=== PATIENT | female | born 1945 | race Caucasian/White ===

== ENCOUNTER 2017-07-31 11:35 | Emergency (ER) | payer MEDICARE, BC ==
[2017-07-31 12:56] LABS: Hematocrit 39 % (35-47); Hemoglobin 13.5 g/dl (12.0-16.0); Mean Corpuscular HGB Conc 35 g/dl (31-36); Mean Corpuscular Hemoglobin 32 pg (27-31); Mean Corpuscular Volume 93 fL (80-97); Mean Platelet Volume 8 um3 (7.4-10.4); Red Blood Count 4.21 10^6/ul (4.0-5.4); Red Cell Distribution Width 13 % (10.5-15); White Blood Count 8.6 10^3/ul (3.5-10.8)
[2017-07-31 13:14] LABS: Albumin 3.9 g/dL (3.2-5.2); BUN/Creatinine Ratio 16.1 (8-20); C Reactive Protein 3.74 mg/L (< 5.00); Calcium 9.5 mg/dL (8.6-10.3); EGFR African American 54.8 (>60); EGFR Non-African American 42.6 (>60); Globulin 2.4 g/dL (2-4); Potassium 3.6 mmol/L (3.5-5.0); Total Bilirubin 0.5 mg/dL (0.2-1.0); Total Protein 6.3 g/dL (6.4-8.9)
[2017-07-31 13:46] LABS: Urine Bilirubin Negative (Negative); Urine Glucose Negative (Negative); Urine Nitrite Negative (Negative)
--- NOTE | 2017-07-31 14:07 | RAD ---
INDICATION: Cough, shortness of breath, pain. COMPARISON: January 29, 2016 TECHNIQUE: Dual energy PA and routine lateral views of the chest were obtained. REPORT: Bibasilar airspace consolidation. Negative for pleural effusion or pneumothorax. The heart, pulmonary vasculature, and mediastinal contours are unremarkable. IMPRESSION: Bibasilar airspace consolidation new compared with the prior exam suspicious for pneumonia.
[2017-07-31] MEDS ORDERED: Levofloxacin 750 MG IVPREMIX(* 750 MG/150 ML BAG IVPB ONE (14:10)
[2017-07-31] MEDS ORDERED: Albuterol HFA INHALER* 8 gm MDI INH ONE (16:29)
[2017-07-31 16:53] VITALS: BP 126/62
--- NOTE | 2017-07-31 17:36 | ED ---
Kellie Engle SooYoung, scribed for Chon Ngo MD on 07/31/17 at 1217 . Shortness of Breath - HPI Summary HPI Summary: A 72 y/o F referred from her PCP for CXR presents to ED with c/o SOB onset last night. Associated sx: cough, subjective fever, post-nasal drip. She saw her PCP approx 10 days ago, dx: sinusitis. Given Levaquin. Pt's daughter has PNA and recently visited with pt. - History of Current Complaint Chief Complaint: EDShortnessOfBreath Time Seen by Provider: 07/31/17 12:01 Hx Obtained From: Patient, Medical Records Onset/Duration: Lasting Hours - onset last night, Still Present Timing: Constant Current Severity: Mild Associated Signs & Symptoms: Fever Related History: Obesity - Allergy/Home Medications Allergies/Adverse Reactions: Allergies Allergy/AdvReac Type Severity Reaction Status Date / Time Amlodipine [From Norvasc] Allergy Intermediate Rash Verified 07/31/17 11:47 Clarithromycin [From Biaxin] Allergy Intermediate Vomiting Verified 07/31/17 11: 47 Ranitidine Allergy Intermediate Hives Verified 07/31/17 11:47 Tetracycline Allergy Intermediate Vomiting Verified 07/31/17 11:47 Amoxicillin Allergy Nausea And Verified 07/31/17 11:47 Vomiting Oxycodone Allergy Dizziness Verified 07/31/17 11:47 ENVIRONMENTAL Allergy Intermediate Sneezing Uncoded 07/31/17 11:47 PMH/Surg Hx/FS Hx/Imm Hx Previously Healthy: No Endocrine/Hematology History: Reports: Hx Diabetes Cardiovascular History: Reports: Hx Hypertension Denies: Hx Pacemaker/ICD GI History: Reports: Hx Gastroesophageal Reflux Disease Sensory History: Denies: Hx Hearing Aid Psychiatric History: Reports: Hx Anxiety, Hx Depression Denies: Hx Panic Disorder - Cancer History Hx Chemotherapy: No Hx Radiation Therapy: No - Surgical History Surgery Procedure, Year, and Place: HAND,GALLBLADDER,HYSTERECTOMY,KIDNEY REMOVED ,NOSE,APPY,HERNIA X 2 - Immunization History Date of Influenza Vaccine: allergic Infectious Disease History: No Infectious Disease History: Denies: Traveled Outside the [place] in Last 30 Days - Family History Known Family History: Positive: Other - Breast CA - Social History Occupation: Retired Lives: Alone Hx Substance Use: No Substance Use Type: Reports: None Review of Systems Positive: Fever Positive: Other - post nasal drip Positive: Shortness Of Breath, Cough All Other Systems Reviewed And Are Negative: Yes Physical Exam - Summary Physical Exam Summary: VITAL SIGNS: Reviewed. GENERAL: Patient is a well-developed and nourished FEMALE who is lying comfortable in the stretcher. Patient is not in any acute respiratory distress. HEAD AND FACE: No signs of trauma. No ecchymosis, hematomas or skull depressions. No sinus tenderness. EYES: PERRLA, EOMI x 2, No injected conjunctiva, no nystagmus. EARS: Hearing grossly intact. Ear canals and tympanic membranes are within normal limits. MOUTH: Oral mucosa is dry, otherwise oropharynx within normal limits. NECK: Supple, trachea is midline, no adenopathy, no JVD, no carotid bruit, no c- spine tenderness, neck with full ROM. CHEST: Symmetric, no tenderness at palpation LUNGS: Crackles in both lung bases. CVS: Regular rate and rhythm, S1 and S2 present. Ejection systolic murmur 2/6. ABDOMEN: Soft, non-tender. No signs of distention. No rebound, no guarding, and no masses palpated. Bowel sounds are normal. EXTREMITIES: FROM in all major joints, no edema, no cyanosis or clubbing. NEURO: Alert and oriented x 3. No acute neurological deficits. Speech is normal and follows commands. SKIN: Dry and warm Triage Information Reviewed: Yes Vital Signs On Initial Exam: Initial Vitals Temp Pulse Resp BP Pulse Ox 99.5 F 84 18 125/60 94 07/31/17 11:42 07/31/17 11:42 07/31/17 11:42 07/31/17 11:42 07/31/17 11:42 Vital Signs Reviewed: Yes Diagnostics - Vital Signs Vital Signs Temp Pulse Resp BP Pulse Ox 07/31/17 11:42 99.5 F 84 18 125/60 94 - Laboratory Lab Results: Lab Results 07/31/17 07/31/17 07/31/17 Range/Units 12:40 12:40 12:40 WBC 8.6 (3.5-10.8) 10^3/ul RBC 4.21 (4.0-5.4) 10^6/ul Hgb 13.5 (12.0-16.0) g/dl Hct 39 (35-47) % MCV 93 (80-97) fL MCH 32 H (27-31) pg MCHC 35 (31-36) g/dl RDW 13 (10.5-15) % Plt Count 153 (150-450) 10^3/ul MPV 8 (7.4-10.4) um3 Neut % (Auto) 67.8 (38-83) % Lymph % (Auto) 21.8 L (25-47) % [place] % (Auto) 6.5 (1-9) % Eos % (Auto) 3.3 (0-6) % Baso % (Auto) 0.6 (0-2) % Absolute Neuts (auto) 5.8 (1.5-7.7) 10^3/ul Absolute Lymphs (auto) 1.9 (1.0-4.8) 10^3/ul Absolute Monos (auto) 0.6 (0-0.8) 10^3/ul Absolute Eos (auto) 0.3 (0-0.6) 10^3/ul Absolute Basos (auto) 0.1 (0-0.2) 10^3/ul Absolute Nucleated RBC 0 10^3/ul Nucleated RBC % 0 Sodium 138 (133-145) mmol/L Potassium 3.6 (3.5-5.0) mmol/L Chloride 107 (101-111) mmol/L Carbon Dioxide 23 (22-32) mmol/L Anion Gap 8 (2-11) mmol/L BUN 20 (6-24) mg/dL Creatinine 1.24 H (0.51-0.95) mg/dL Est GFR ( Amer) 54.8 (>60) Est GFR (Non-Af Amer) 42.6 (>60) BUN/Creatinine Ratio 16.1 (8-20) Glucose 115 H (70-100) mg/dL Calcium 9.5 (8.6-10.3) mg/dL Total Bilirubin 0.50 (0.2-1.0) mg/dL AST 11 L (13-39) U/L ALT 8 (7-52) U/L Alkaline Phosphatase 56 (34-104) U/L C-Reactive Protein 3.74 (< 5.00) mg/L B-Natriuretic Peptide 32 ( - 100) pg/mL Total Protein 6.3 L (6.4-8.9) g/dL Albumin 3.9 (3.2-5.2) g/dL Globulin 2.4 (2-4) g/dL Albumin/Globulin Ratio 1.6 (1-3) Urine Color Urine Appearance Urine pH (5-9) Ur Specific [place] (1.010-1.030) Urine Protein (Negative) Urine Ketones (Negative) Urine Blood (Negative) Urine Nitrate (Negative) Urine Bilirubin (Negative) Urine Urobilinogen (Negative) Ur Leukocyte Esterase (Negative) Urine Glucose (Negative) 07/31/17 Range/Units 13:37 WBC (3.5-10.8) 10^3/ul RBC (4.0-5.4) 10^6/ul Hgb (12.0-16.0) g/dl Hct (35-47) % MCV (80-97) fL MCH (27-31) pg MCHC (31-36) g/dl RDW (10.5-15) % Plt Count (150-450) 10^3/ul MPV (7.4-10.4) um3 Neut % (Auto) (38-83) % Lymph % (Auto) (25-47) % [place] % (Auto) (1-9) % Eos % (Auto) (0-6) % Baso % (Auto) (0-2) % Absolute Neuts (auto) (1.5-7.7) 10^3/ul Absolute Lymphs (auto) (1.0-4.8) 10^3/ul Absolute Monos (auto) (0-0.8) 10^3/ul Absolute Eos (auto) (0-0.6) 10^3/ul Absolute Basos (auto) (0-0.2) 10^3/ul Absolute Nucleated RBC 10^3/ul Nucleated RBC % Sodium (133-145) mmol/L Potassium (3.5-5.0) mmol/L Chloride (101-111) mmol/L Carbon Dioxide (22-32) mmol/L Anion Gap (2-11) mmol/L BUN (6-24) mg/dL Creatinine (0.51-0.95) mg/dL Est GFR ( Amer) (>60) Est GFR (Non-Af Amer) (>60) BUN/Creatinine Ratio (8-20) Glucose (70-100) mg/dL Calcium (8.6-10.3) mg/dL Total Bilirubin (0.2-1.0) mg/dL AST (13-39) U/L ALT (7-52) U/L Alkaline Phosphatase (34-104) U/L C-Reactive Protein (< 5.00) mg/L B-Natriuretic Peptide ( - 100) pg/mL Total Protein (6.4-8.9) g/dL Albumin (3.2-5.2) g/dL Globulin (2-4) g/dL Albumin/Globulin Ratio (1-3) Urine Color Yellow Urine Appearance Clear Urine pH 7.0 (5-9) Ur Specific [place] 1.009 L (1.010-1.030) Urine Protein Negative (Negative) Urine Ketones Negative (Negative) Urine Blood Negative (Negative) Urine Nitrate Negative (Negative) Urine Bilirubin Negative (Negative) Urine Urobilinogen Negative (Negative) Ur Leukocyte Esterase Negative (Negative) Urine Glucose Negative (Negative) Result Diagrams: 07/31/17 12:40 07/31/17 12:40 Lab Statement: Any lab studies that have been ordered have been reviewed, and results considered in the medical decision making process. - Radiology CXR Xray Interpretation: Positive (See Comments) - IMPRESSION: Bibasilar airspace consolidation new compared with the prior exam suspicious for pneumonia. ED physician has reviewed this radiology report and agrees. Radiology Interpretation Completed By: Radiologist - EKG 1217 Cardiac Rate: NL - 81bpm EKG Rhythm: Sinus Rhythm ST Segment: Normal - no ST elevation EKG Interpretation: low voltage EKG Re-Evaluation - Re-Evaluation 1 Re-Evaluation Time: 14:10 Change: Unchanged Comment: Discussing results with pt. Course/Dx - Course Course Of Treatment: A 72 y/o F referred from her PCP for CXR presents to ED with c/o SOB onset last night. Associated sx: cough, subjective fever, post- nasal drip. She saw her PCP approx 10 days ago, dx: sinusitis. Given Levaquin. Pt's daughter has PNA and recently visited with pt. Test results are without significant abnormality except creatinine 1.24, possibly secondary to dehydration. UA results are negative for UTI. CXR shows "IMPRESSION: Bibasilar airspace consolidation new compared with the prior exam suspicious for pneumonia." In ED course, pt given Levaquin for the PNA. [id number] is less than 1, therefore pt's PNA can be treated out-patient. Pt is hemodynamically stable and A&Ox3. I discussed all the findings and test results with the patient. Patient was instructed to return to the emergency room immediately if any of the symptoms return or worsens. Plan of care was discussed with the patient and understands and agrees. All questions were answered at patient satisfaction. There were no further complaints or concerns. - Diagnoses Differential Diagnosis/HQI/PQRI: Positive: Bronchitis, CHF, COPD Exacerbation, Pneumonia Provider Diagnoses: Pneumonia Discharge - Discharge Plan Condition: Stable Disposition: HOME Prescriptions: Levofloxacin TAB* [Levaquin TAB*] 750 mg PO DAILY #9 tab Patient Education Materials: Pneumonia (ED), Levofloxacin (By mouth) Referrals: Kimberlee Esteban MD [Primary Care Provider] - 2 Days Additional Instructions: Follow up with your Primary Care Provider in 2-3 days. Please return to ED if you experience new or worsening symptoms. The documentation as recorded by the Kellie woody SooYoung accurately reflects the service I personally performed and the decisions made by me, Chon Ngo MD.
== END 2017-07-31 17:14 | disposition home or self-care (01) ==
LOC: ED 11:35
DX: J18.9 Pneumonia, unspecified organism (principal); R50.9 Fever, unspecified; R06.02 Shortness of breath; R05 Cough
CPT/HCPCS: 36415; 71020; 80053; 81003; 83880; 85025; 86140; 93005; 99283; A9270-GY

== ENCOUNTER 2018-04-11 22:47 | Emergency (ER) | payer MEDICARE, BC ==
[2018-04-12] MEDS ORDERED: traMADol TAB* 50 MG PO ONE (02:42)
--- NOTE | 2018-04-12 02:45 | ED ---
Adult Trauma - HPI Summary HPI Summary: patient complains of headache, right side neck pain, right chest wall pain, right hip pain, lower back pain S/P witnessed mechanical fall from standing position today at 10:30. POS LOC for about 30 seconds per family. Denies any prior symptoms. Denies active N/V, vision change, AMS, focal deficits since fall. Patient is ambulated. Medical history is DM. No anti-coag. - History of Current Complaint Chief Complaint: EDGeneral Stated Complaint: FALL/HIT HEAD Time Seen by Provider: 04/12/18 00:43 Hx Obtained From: Patient Mechanism of Injury: Fall Loss of Consciousness: brief (seconds) Onset of Pain: Immediate Onset Severity: Moderate Current Severity: Moderate Pain Intensity: 8 Pain Scale Used: 0-10 Numeric Location: Head, Neck Character: Aching Aggravating Factor(s): Movement Alleviating Factor(s): Nothing Associated Signs & Symptoms: Positive: Negative - Allergy/Home Medications Allergies/Adverse Reactions: Allergies Allergy/AdvReac Type Severity Reaction Status Date / Time amlodipine Allergy Rash Verified 04/12/18 01:38 amoxicillin Allergy Nausea And Verified 04/12/18 01:38 Vomiting clarithromycin Allergy Vomiting Verified 04/12/18 01:38 oxycodone Allergy Dizziness Verified 04/12/18 01:38 ranitidine Allergy Hives Verified 04/12/18 01:38 tetracycline Allergy Vomiting Verified 04/12/18 01:38 ENVIRONMENTAL Allergy Intermediate Sneezing Uncoded 07/31/17 11:47 PMH/Surg Hx/FS Hx/Imm Hx Endocrine/Hematology History: Reports: Hx Diabetes Cardiovascular History: Reports: Hx Hypertension Denies: Hx Pacemaker/ICD GI History: Reports: Hx Gastroesophageal Reflux Disease Sensory History: Denies: Hx Hearing Aid Psychiatric History: Reports: Hx Anxiety, Hx Depression Denies: Hx Panic Disorder - Cancer History Hx Chemotherapy: No Hx Radiation Therapy: No - Surgical History Surgery Procedure, Year, and Place: HAND,GALLBLADDER,HYSTERECTOMY,KIDNEY REMOVED ,NOSE,APPY,HERNIA X 2 - Immunization History Date of Tetanus Vaccine: utd Date of Influenza Vaccine: unable to take Infectious Disease History: No Infectious Disease History: Denies: Traveled Outside the [place] in Last 30 Days - Family History Known Family History: Positive: Other - Breast CA - Social History Alcohol Use: None Hx Substance Use: No Substance Use Type: Reports: None Smoking Status (MU): Never Smoked Tobacco Review of Systems Constitutional: Negative Eyes: Negative ENT: Negative Cardiovascular: Negative Respiratory: Negative Gastrointestinal: Negative Genitourinary: Negative Musculoskeletal: Other Skin: Negative Positive: Headache Psychological: Normal All Other Systems Reviewed And Are Negative: Yes Physical Exam - Summary Physical Exam Summary: No ecchymosis, swelling, deformity, abrasions or lacerations to head, face, mouth, neck, back, bilateral upper extremities, bilateral lower extremities, bilateral hips, chest wall, abdomen. Tenderness to L-spine, right hip, right side chest wall, right side head, right side neck. Full range of motion of neck. Full flexion and extension of bilateral upper extremities and lower extremity. Limited range of motion of right hip. No external rotation or foot. Legs of equal length. PMS intact distally on bilateral lower extremity. Neuro exam normal. EOMs intact. PERRLA. Triage Information Reviewed: Yes Vital Signs On Initial Exam: Initial Vitals Temp Pulse Resp BP Pulse Ox 98.1 F 72 16 130/64 96 04/11/18 22:49 04/11/18 22:49 04/11/18 22:49 04/11/18 22:49 04/11/18 22:49 Vital Signs Reviewed: Yes Appearance: Positive: Well-Appearing Skin: Positive: Warm Head/Face: Positive: Normal Head/Face Inspection ENT: Positive: Normal ENT inspection Neck: Positive: Supple Respiratory/Lung Sounds: Positive: Clear to Auscultation Cardiovascular: Positive: Normal Abdomen Description: Positive: Nontender Musculoskeletal: Positive: Normal Neurological: Positive: Normal Psychiatric: Positive: Normal AVPU Assessment: Alert - [place] Coma Scale Best Eye Response: 4 - Spontaneous Best Motor Response: 6 - Obeys Commands Best Verbal Response: 5 - Oriented Coma Scale Total: 15 Diagnostics - Vital Signs Vital Signs Temp Pulse Resp BP Pulse Ox 04/12/18 02:20 73 21 114/54 93 04/12/18 02:00 70 23 95 04/12/18 01:50 72 24 127/62 97 04/12/18 01:35 21 04/12/18 00:50 72 116/63 95 04/11/18 22:49 98.1 F 72 16 130/64 96 - Laboratory Lab Results: Lab Results 04/11/18 Range/Units 23:48 POC Glucose (mg/dL) 102 H (70-100) mg/dL Lab Statement: Any lab studies that have been ordered have been reviewed, and results considered in the medical decision making process. - Radiology cxr Xray Interpretation: No Acute Changes Radiology Interpretation Completed By: ED Physician hip Xray Interpretation: No Acute Changes Radiology Interpretation Completed By: ED Physician l spine Xray Interpretation: No Acute Changes Radiology Interpretation Completed By: ED Physician - CT brain CT Interpretation: No Acute Changes CT Interpretation Completed By: Radiologist neck CT Interpretation: No Acute Changes CT Interpretation Completed By: Radiologist Adult Trauma Course/Dx - Course Course Of Treatment: patient complains of headache, right side neck pain, right chest wall pain, right hip pain, lower back pain S/P witnessed mechanical fall from standing position today at 10:30. POS LOC for about 30 seconds per family. Denies any prior symptoms. Denies active N/V, vision change, AMS, focal deficits since fall. Patient is ambulated. Medical history is DM. No anti- coag. No ecchymosis, swelling, deformity, abrasions or lacerations to head, face, mouth, neck, back, bilateral upper extremities, bilateral lower extremities, bilateral hips, chest wall, abdomen. Tenderness to L-spine, right hip, right side chest wall, right side head, right side neck. Full range of motion of neck. Full flexion and extension of bilateral upper extremities and lower extremity. Limited range of motion of right hip. No external rotation or foot. Legs of equal length. PMS intact distally on bilateral lower extremity. Neuro exam normal. EOMs intact. PERRLA. Vital signs within normal limits. Imaging negative. Follow-up with primary care. - Diagnoses Provider Diagnoses: Fall, Head injury Discharge - Sign-Out/Discharge Documenting (check all that apply): Discharge/Admit/Transfer - Discharge Plan Condition: Stable Disposition: HOME Patient Education Materials: Concussion (ED), Post Concussion Syndrome (ED) Referrals: Ashanti Cox NP [Primary Care Provider] - Additional Instructions: Follow-up with primary care. Return to the ED for any new or worsening symptoms - Billing Disposition and Condition Condition: STABLE Disposition: Home
[2018-04-12 03:00] VITALS: BP 127/87
--- NOTE | 2018-04-12 07:38 | RAD ---
INDICATION: Fall. Intracranial injury. COMPARISON: CT brain November 29, 2004 TECHNIQUE: Noncontrast axial source images were acquired from the skull base to the vertex. FINDINGS: Ventricles/sulci: There is cortical atrophy with compensatory dilatation of the CSF spaces. Brain parenchyma: There is periventricular and subcortical white matter change compatible with chronic ischemia. Intracranial hemorrhage:None. Extra-axial spaces: There are no abnormal extra axial fluid collections or evidence of extra-axial mass. Calvarium: There is no calvarial fracture or other calvarial abnormality. Scalp: There is no evidence of scalp or extracalvarial soft tissue abnormality. Paranasal sinuses/mastoid: The paranasal sinuses and mastoid air cells are clear. Other: None. IMPRESSION: Age-related atrophy with chronic microvascular ischemic change. No acute findings.
--- NOTE | 2018-04-12 07:42 | RAD ---
INDICATION: Fall. Possible neck injury. COMPARISON: CT cervical spine July 11, 2010 TECHNIQUE: Noncontrast axial source images was performed from the skull base to the thoracic inlet. Coronal and and sagittal reformatted images were generated. FINDINGS: Vertebrae: There is no fracture or acute focal bony lesion. There is multilevel spondylitic change with disc space narrowing, endplate sclerosis and marginal osteophyte formation and facet arthropathy most prominent at C4-C7. There is also osteoarthritic change of the upper thoracic spine. There is intervertebral disc calcification at C2-C3 Alignment: The craniocervical junction appears normal. The cervical vertebrae are normally aligned. Central Canal: Posterior spondylitic ridge reformation and suppresses spurring leads to mild decrease in AP diameter canal multiple levels and there is mild bilateral foraminal narrowing. MR imaging is a more sensitive method to evaluate the canal and foramina. Intervertebral disc spaces: As above multilevel degenerative disc space narrowing. Brain: The visualized brain appears unremarkable. Soft tissues: The visualized soft tissue elements of the neck are unremarkable. The prevertebral soft tissues appear normal. The lung apices are clear. IMPRESSION: MODERATE MULTILEVEL OSTEOARTHRITIC CHANGES. NO ACUTE FINDINGS
--- NOTE | 2018-04-12 07:43 | RAD ---
INDICATION: Fall COMPARISON: September 05, 2017 TECHNIQUE: PA and lateral dual-energy views were obtained. FINDINGS: Bones/Soft Tissues: There are no acute bony findings. Cardiomediastinal: The cardiomediastinal silhouette is normal. Lungs: There are no infiltrates. Pleura: There are no pleural effusions. Other: None IMPRESSION: NO ACTIVE DISEASE.
--- NOTE | 2018-04-12 07:46 | RAD ---
INDICATION: Fall. Back pain COMPARISON: CT October 21, 2013 TECHNIQUE: Routine PA, lateral, and oblique imaging was performed . FINDINGS: Bones: There are no acute bony findings. There are arthritic changes most severe at L4-L5 where there is prominent facet arthropathy. There is disc space narrowing at the lower 3 lumbar levels with additional facet arthropathy.. Alignment: There are no changes in alignment. There is a minimal anterolisthesis of L4 and L5 which is likely on a degenerative basis and there is mild convexity of the lumbar spine to the right Disc spaces: Multilevel degenerative disc space narrowing Soft tissues: There is metallic artifact from ventral mesh placement. IMPRESSION: MODERATE MULTILEVEL OSTEOARTHRITIC CHANGES.
--- NOTE | 2018-04-12 07:46 | RAD ---
INDICATION: Fall. Right hip pain COMPARISON: None TECHNIQUE: An AP view of the pelvis and AP views of the hip in neutral and abducted position were obtained FINDINGS: Bones: There are no acute bony findings. Joint spaces: The hips articulate normally. The joint spaces are preserved. SI joints/symphysis: The SI joints and symphysis are intact. There is mild sclerosis about the symphysis pubis. Other: There is metallic artifact from ventral mesh placement. IMPRESSION: NO ACUTE BONY FINDINGS.
== END 2018-04-12 03:05 | disposition home or self-care (01) ==
LOC: ED 22:47
DX: S09.90XA Unspecified injury of head, initial encounter (principal); R07.89 Other chest pain; M54.2 Cervicalgia; M25.551 Pain in right hip; W19.XXXA Unspecified fall, initial encounter; Y92.9 Unspecified place or not applicable; E11.9 Type 2 diabetes mellitus without complications; Z88.8 Allergy status to other drugs, medicaments and biological substances; Z88.3 Allergy status to other anti-infective agents
CPT/HCPCS: 70450; 71046; 72100; 72125; 93005; 99283; A9270-GY

== ENCOUNTER 2019-11-29 09:46 | Day surgery (SDC) | payer MEDICARE, BC ==
[~2019-11-29 09:46] MED LIST: Buffered Lidocaine 1% SYRIN* 1 ML/SYRINGE INTRADERM ONE; Lactated Ringers 1000 ML Bag* 1,000 ML IV SCH
[2019-11-29] MEDS ORDERED: Bupivacaine 0.5% SDV PF* 30ML VIAL ONE (09:50)
[2019-11-29] MEDS ORDERED: Dexamethasone IV* 4 MG/ML 1 ML (4 MG) ONE ×2 (09:50→11:08)
[2019-11-29] MEDS ORDERED: Lidocaine 1% INJ* 10 MG/ML 30 ML SDV ONE (09:50)
[2019-11-29] MEDS ORDERED: Clindamycin 900 MG/D5W BAG(*) 900 MG/50 ML BAG IVPB ONE (09:52)
[2019-11-29] MEDS ORDERED: Midazolam* 1 MG/ML 2 ML VIAL (2 MG) ONE (09:58)
[2019-11-29] MEDS ORDERED: fentaNYL* 50 MCG/ML 2 ML VIAL (100 MCG VIAL) ONE (10:39)
[2019-11-29] MEDS ORDERED: DiMENhydriNATE IV* 50 MG/ML VIAL IV PUSH PRN (10:59)
[2019-11-29] MEDS ORDERED: Naloxone* 0.4 MG/ML 1 ML VIAL IV PRN (10:59)
[2019-11-29] MEDS ORDERED: fentaNYL* 50 MCG/ML 2 ML VIAL (100 MCG VIAL) IV PRN (10:59)
[2019-11-29] MEDS ORDERED: Ondansetron INJ* 2 MG/ML VIAL IV PRN (10:59)
[2019-11-29] MEDS ORDERED: diPHENhydraMINE IV* 50 MG/ML 1 ml VIAL (BENADRYL) IV PRN (10:59)
[2019-11-29] MEDS ORDERED: Levalbuterol 0.63MG/3ML NEB* UNIT OF USE INH PRN (10:59)
[2019-11-29] MEDS ORDERED: Lidocaine 2% PF * 5 ML VIAL ONE (11:08)
[2019-11-29] MEDS ORDERED: Propofol* 10 MG/ML 20 ML BTL ONE (11:08)
[2019-11-29] MEDS ORDERED: Ondansetron INJ* 2 MG/ML VIAL ONE (11:08)
[2019-11-29] MEDS ORDERED: Ketorolac INJ* 30 MG/ML 1 ML VIAL ONE (11:08)
[2019-11-29 13:23] VITALS: BP 126/80
--- NOTE | 2019-11-29 17:15 | OP ---
DATE OF OPERATION: 11/29/19 - [facility] DATE OF : 47 SURGEON: John Saini DPM REHABILITATION AIDE/SCHEDULER: None. ANESTHESIA: MAC with local. PRE-OP DIAGNOSES: 1. 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 2. Diabetic with chronic and painful third left hammertoe. POST-OP DIAGNOSES: 1. 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 2. Diabetic with chronic and painful third left hammertoe. 3. 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 OPERATIVE PROCEDURE: 1. Correction of second left hammertoe with proximal interphalangeal joint arthroplasty. 2. Correction of third left hammertoe with proximal interphalangeal joint arthroplasty. PATHOLOGY: Resected degenerative bone. HEMOSTASIS: Pneumatic ankle tourniquet. INDICATIONS: The patient with chronic and progressive contracture and stiffness involving the second and third left toes, second toe in particular, chronic and recurrent ulceration at the tip of the toe, which is not currently ulcerated nor infected. The third left toe has some morphological abnormalities of the PIPJ and stiffness with possible history of trauma. he patient opts for surgery at this time to reduce the deformity and the contracture contributing to the ulceration and the pain associated when walking , wearing shoes. DESCRIPTION OF PROCEDURE: The patient was brought to the operating room and placed on the operating table in supine position. The anesthesia department administered IV sedation and a peripheral nerve block was performed about the left forefoot with 1:1 mixture of 1% lidocaine plain and 0.5% Marcaine plain. The left foot was prepped and draped in the usual fashion. Left foot was then exsanguinated. Pneumatic ankle tourniquet was inflated to 250 mmHg about a well- padded left ankle. Attention was directed to the second left digit. Two transverse subsequent incisions were made over the PIPJ and wedge of the skin was resected. Dissection was carried down to the joint with care being taken to retract neurovascular structures and cauterize superficial bleeders as needed. Next, a transverse tenotomy capsulotomy was performed for exposure of the proximal phalangeal head, which was resected with sagittal saw and a power steph was used to smooth rough edges. The surgical site was flushed with copious amounts of normal sterile saline. The tendon and capsular tissues were reapproximated and secured with 4-0 Vicryl and the skin was closed with 5-0 nylon. Next, attention was directed to the third left digit where at the proximal interphalangeal joint, similar procedure was performed, resecting wedge of skin dorsally incising the joint. In this case, however, there was noted to be white chalk-like debris and tissue in abundance as well as some hypertrophy of the proximal phalangeal head in the base of the middle phalanx. A sagittal saw was used to resect the head of the proximal phalanx and a portion of the base of the middle phalanx, and a power steph was used to smooth and reduce rough and hypertrophic edges. The surgical site was flushed with copious amounts of normal sterile saline. In similar fashion, the tendinous and capsular structures were reapproximated and secured with 4-0 Vicryl and the skin was closed with 5-0 nylon. Next, the Mastisol was used to prep the skin and then Steri-Strips were used to splint the digits in a rectus position. The incisions were then dressed with Xeroform gauze and a sterile mildly compressive dressing was applied with 4x4 gauze, Don, and light Coban wrap. Pneumatic ankle tourniquet was deflated about the left ankle. After few moments , a hyperemic response was noted about all 5 digits of the patient's left foot. Having appeared to tolerate the procedures and anesthesia well, the patient was transported via cart from the operating room to Recovery in satisfactory condition with cap refill less than 3 seconds to all digits in the left foot. [id number]/[facility] #: [id number] JASON
== END 2019-11-29 12:35 | disposition home or self-care (01) ==
LOC: OREAST 09:46
PROVIDERS: ATTEND Podiatrist Foot Surgery
DX: M20.42 Other hammer toe(s) (acquired), left foot (principal); N18.3 Chronic kidney disease, stage 3 (moderate); I12.9 Hypertensive chronic kidney disease with stage 1 through stage 4 chronic kidney disease, or unspecified chronic kidney disease; I34.1 Nonrheumatic mitral (valve) prolapse; E11.9 Type 2 diabetes mellitus without complications; Z79.84 Long term (current) use of oral hypoglycemic drugs; M79.7 Fibromyalgia; F41.8 Other specified anxiety disorders; E55.9 Vitamin D deficiency, unspecified; Z68.41 Body mass index [BMI] 40.0-44.9, adult
CPT/HCPCS: 88304; 88311; J1100; J1885; J2250; J2405; J2704; J3010; J3490

== ENCOUNTER 2021-08-23 14:57 | Inpatient (IN) ==
[2021-08-23 16:05] LABS: ABS Basophils 0.1 10^3/ul (0-0.2); ABS Eosinophils 0.2 10^3/ul (0-0.6); ABS Lymphocytes 1.4 10^3/ul (1.0-4.8); ABS Monocytes 0.5 10^3/ul (0-0.8); ABS Neutrophils 4.3 10^3/ul (1.5-7.7); Eosinophil % 3.8 %; Hematocrit 43 % (35-47); Hemoglobin 14.6 g/dL (12.0-16.0); Lymphocyte % 21.3 %; Mean Corpuscular HGB Conc 34 g/dL (31-36); Mean Corpuscular Hemoglobin 34 pg (27-31); Mean Corpuscular Volume 99 fL (80-97); Mean Platelet Volume 9.6 fL (7.4-10.4); Platelet Count 140 10^3/uL (150-450); Red Blood Count 4.36 10^6 /uL (3.70-4.87); Red Cell Distribution Width 13 % (10-15); White Blood Count 6.5 10^3/uL (3.5-10.8)
[2021-08-23 16:13] LABS: INR 1.13 (0.86-1.15)
[2021-08-23 16:24] LABS: Urine Appearance Cloudy; Urine Bilirubin Negative (Negative); Urine Blood 1+ (Negative); Urine Color Yellow; Urine Glucose Negative (Negative); Urine Ketones Negative (Negative); Urine Nitrite Negative (Negative); Urine Protein Negative (Negative); Urine Specific Gravity 1.015 (1.002-1.030); Urine Urobilinogen Negative (Negative)
[2021-08-23 16:29] LABS: ALT 11 U/L (7-52); AST 17 U/L (13-39); Albumin 4.2 g/dL (3.2-5.2); Albumin/Globulin Ratio 1.8 (1-3); Alkaline Phosphatase 60 U/L (35-149); Anion Gap 6 mmol/L (2-11); Blood Urea Nitrogen 17 mg/dL (6-24); CO2 Carbon Dioxide 22 mmol/L (22-32); Calcium 9.4 mg/dL (8.6-10.3); Chloride 111 mmol/L (101-111); Globulin 2.3 g/dL (2-4); Glucose 138 mg/dL (70-100); Potassium 3.9 mmol/L (3.5-5.0); Sodium 139 mmol/L (135-145); Total Protein 6.5 g/dL (6.4-8.9); Troponin I 0.01 ng/mL (<0.03)
[2021-08-23 16:44] LABS: Alcohol, S < 13 mg/dL (<13)
[2021-08-23 16:47] LABS: Urine Benzodiazepine Screen None Detected (None Detect); Urine Cannabinoids Screen None Detected (None Detect); Urine Opiates Screen None Detected (None Detect)
[2021-08-23 16:48] LABS: Urine Bacteria Absent (Absent); Urine Red Blood Cell Trace(0-2/hpf) (Absent); Urine Squamous Epithelial Cell Present (Absent); Urine White Blood Cell Trace(0-5/hpf) (Absent)
[2021-08-23 16:59] LABS: TSH Ultra Thyroid Stim Horm 2.12 mcIU/mL (0.34-5.60)
[2021-08-24] MEDS ORDERED: Al Hydrox/Mg Hydrox/Simet LIQ 30 ML UDC PO PRN (11:41)
[2021-08-24 13:51] LABS: Rapid COVID-19 Molecular Undetected (Undetected)
[2021-08-26 07:54] LABS: HDL Cholesterol 36.7 mg/dL
[2021-08-28 09:37] VITALS: BP 137/54
== END 2021-08-28 13:30 | disposition home or self-care (01) | DRG 885 ==
LOC: ED 14:57 → EDHOLD 08-24 18:15 → BSU 08-24 19:12
PROVIDERS: ADMIT Psychiatry & Neurology Psychiatry; ATTEND Psychiatry & Neurology Psychiatry

== ENCOUNTER 2022-06-03 20:55 | Inpatient (IN) ==
[2022-06-04 00:55] LABS: ABS Basophils 0.1 10^3/ul (0-0.2); ABS Eosinophils 0.8 10^3/ul (0-0.6); ABS Lymphocytes 2.1 10^3/ul (1.0-4.8); ABS Monocytes 0.5 10^3/ul (0-0.8); ABS Neutrophils 5.2 10^3/ul (1.5-7.7); Eosinophil % 9.4 %; Hematocrit 38 % (35-47); Hemoglobin 12.7 g/dL (12.0-16.0); Lymphocyte % 23.9 %; Mean Corpuscular HGB Conc 33 g/dL (31-36); Mean Corpuscular Hemoglobin 33 pg (27-31); Mean Corpuscular Volume 99 fL (80-97); Mean Platelet Volume 10.3 fL (7.4-10.4); Nucleated Red Blood Cells % 0.1; Platelet Count 141 10^3/uL (150-450); Red Blood Count 3.85 10^6 /uL (3.70-4.87); Red Cell Distribution Width 14 % (10-15); White Blood Count 8.8 10^3/uL (3.5-10.8)
[2022-06-04 01:34] LABS: Urine Appearance Clear; Urine Bilirubin Negative (Negative); Urine Blood Negative (Negative); Urine Color Yellow; Urine Glucose Negative (Negative); Urine Ketones Negative (Negative); Urine Nitrite Negative (Negative); Urine Protein Negative (Negative); Urine Specific Gravity 1.015 (1.005-1.030); Urine Urobilinogen 0.2 (Negative) (Negative)
[2022-06-04 01:45] LABS: Urine Bacteria 1+ (Absent); Urine Red Blood Cell Trace(0-2/hpf) (Absent); Urine Squamous Epithelial Cell Present (Absent); Urine White Blood Cell 2+(11-20/hpf) (Absent)
[2022-06-04 01:46] LABS: Albumin 4.1 g/dL (3.2-5.2); Albumin/Globulin Ratio 2.1 (1-3); C Reactive Protein 19.85 mg/L (<8.01); Calcium 9.6 mg/dL (8.6-10.3); Potassium 4.2 mmol/L (3.5-5.0); Total Bilirubin 0.4 mg/dL (0.2-1.0); Total Protein 6.1 g/dL (6.4-8.9); eGFR CKD-EPI 46.4 (>60)
[2022-06-04] MEDS ORDERED: DOXYcycline 100 MG in NS 0.9% 250 ml 250 ML IVPB ONE (02:02)
[2022-06-04] MEDS ORDERED: Gadoteridol (CONTRAST) 279.3 MG/ML 10 ML IV ONE (10:39)
[2022-06-04] MEDS ORDERED: Piperacillin/Tazobac ADVAN 3.375 GM in NS 0.9% 100 ml BAG 100 ML IV ONE (11:27)
[2022-06-04] MEDS ORDERED: Vancomycin 1,000 MG in NS 0.9% 250 ml 250 ML IVPB ONE (12:00)
[2022-06-04 12:59] LABS: Magnesium 1.7 mg/dL (1.9-2.7)
[2022-06-04 13:21] LABS: Folate 17.09 ng/mL (5.90-24.80)
[2022-06-04] MEDS ORDERED: Zosyn per Pharmacy NOTE FOLLOW UP SCH (15:00)
[2022-06-04] MEDS ORDERED: Vancomycin per Pharmacy 1 EA NOTE FOLLOW UP SCH (15:00)
[2022-06-04] MEDS: ZOSYN 3.375 GM Q8H per EXTENDED INFUSION IV SCH (16:07)
[2022-06-04] MEDS: Cefepime 2 GM in Dextrose 2 GM/50 ML BAG IV SCH (17:43)
[2022-06-04] MEDS: Enoxaparin 30 MG/0.3 ML SYR SUBCUT SCH (20:38)
[2022-06-04] MEDS: Vancomycin 750 MG in NS 0.9% 250 ML IVPB SCH (21:48)
[2022-06-05] MEDS: ZOSYN 3.375 GM Q8H per EXTENDED INFUSION IV SCH ×2 (00:06→08:46)
[2022-06-05] MEDS: Cefepime 2 GM in Dextrose 2 GM/50 ML BAG IV SCH ×2 (04:40→17:05)
[2022-06-05] MEDS: Vancomycin 750 MG in NS 0.9% 250 ML IVPB SCH ×2 (08:10→19:29)
[2022-06-05 09:27] LABS: Calcium 9.3 mg/dL (8.6-10.3); eGFR CKD-EPI 41.8 (>60)
[2022-06-05 10:40] LABS: Magnesium 1.6 mg/dL (1.9-2.7)
[2022-06-05] MEDS ORDERED: Permethrin 5% CREAM 1 TUBE TOPICAL ONE (13:22)
[2022-06-05] MEDS: Enoxaparin 30 MG/0.3 ML SYR SUBCUT SCH (19:35)
[2022-06-06] MEDS: Cefepime 2 GM in Dextrose 2 GM/50 ML BAG IV SCH ×2 (06:26→18:13)
[2022-06-06] MEDS ORDERED: Magnesium Sulfate 2 gm BAG 2 GM/50 ML BAG IVPB ONE (07:32)
[2022-06-06] MEDS: Vancomycin 750 MG in NS 0.9% 250 ML IVPB SCH ×2 (07:56→20:34)
[2022-06-06] MEDS ORDERED: Vancomycin Trough Check NOTE FOLLOW UP ONE (08:30)
[2022-06-06 08:41] LABS: Potassium 3.8 mmol/L (3.5-5.0); eGFR CKD-EPI 44.7 (>60)
[2022-06-06] MEDS: Enoxaparin 30 MG/0.3 ML SYR SUBCUT SCH (20:36)
[2022-06-07] MEDS: Cefepime 2 GM in Dextrose 2 GM/50 ML BAG IV SCH (05:16)
[2022-06-07 06:06] LABS: Calcium 8.9 mg/dL (8.6-10.3); Magnesium 2.1 mg/dL (1.9-2.7); Potassium 3.9 mmol/L (3.5-5.0)
[2022-06-07] MEDS: Vancomycin 750 MG in NS 0.9% 250 ML IVPB SCH ×2 (08:37→20:38)
[2022-06-07] MEDS: Enoxaparin 30 MG/0.3 ML SYR SUBCUT SCH (20:37)
[2022-06-08 06:14] LABS: Magnesium 1.9 mg/dL (1.9-2.7); Potassium 4.1 mmol/L (3.5-5.0); eGFR CKD-EPI 49.4 (>60)
[2022-06-08] MEDS ORDERED: Vancomycin Trough Check NOTE FOLLOW UP ONE (08:30)
[2022-06-08 09:42] LABS: Vancomycin Trough 21.4 mcg/mL
[2022-06-08] MEDS: Vancomycin 750 MG in NS 0.9% 250 ML IVPB SCH (09:47)
[2022-06-08 15:53] VITALS: BP 128/57
== END 2022-06-08 16:00 | disposition home or self-care (01) | DRG 540 ==
LOC: ED 20:55 → EDHOLD 20:55 → MED 06-04 14:50 → SUATTDRO 06-05 13:41
PROVIDERS: ADMIT Internal Medicine; ATTEND Internal Medicine

== ENCOUNTER 2024-11-07 11:57 | Observation (INO) ==
[2024-11-07 12:35] LABS: ABS Eosinophils 0.3 10^3/uL (0.0-0.5); ABS Lymphocytes 1.9 10^3/uL (1.0-4.8); ABS Monocytes 0.4 10^3/uL (0.0-0.9); ABS Neutrophils 3.1 10^3/uL (1.5-7.6); Eosinophil % 5.3 %; Hematocrit 31.2 % (35-45); Hemoglobin 10.7 g/dL (11.5-14.3); Lymphocyte % 32.8 %; Mean Corpuscular Hemoglobin 35.7 pg (27-33); Mean Corpuscular Hgb Conc 34.4 g/dL (31-36); Mean Corpuscular Volume 103.8 fL (80-97); Mean Platelet Volume 11.4 fL (7.5-11.2); Platelet Count 122 10^3/uL (150-450); Red Cell Distribution Width 14.9 % (12-17); White Blood Count 5.7 10^3/uL (3.8-11.8)
[2024-11-07 12:40] LABS: INR 1.15 (0.85-1.14)
[2024-11-07 12:47] LABS: High Sens Troponin Baseline 8 pg/mL (<15)
[2024-11-07 12:51] LABS: ALT 9 U/L (7-52); AST 12 U/L (13-39); Albumin 3.9 g/dL (3.5-5.7); Albumin/Globulin Ratio 2.4 (1-3); Alkaline Phosphatase 59 U/L (35-149); Anion Gap 6 mmol/L (2-16); Blood Urea Nitrogen 13 mg/dL (6-24); CO2 Carbon Dioxide 25 mmol/L (22-32); Calcium 8.3 mg/dL (8.6-10.3); Chloride 113 mmol/L (101-111); Creatinine, Serum 1.05 mg/dL (0.51-0.95); Globulin 1.6 g/dL (2-4); Glucose 112 mg/dL (70-100); Potassium 3.2 mmol/L (3.5-5.0); Sodium 144 mmol/L (135-145); Total Bilirubin 0.7 mg/dL (0.2-1.0); Total Protein 5.5 g/dL (6.4-8.9); eGFR CKD-EPI 54.4 (>60)
[2024-11-07 14:20] LABS: High Sensitivity Troponin 1 Hr 10 pg/mL (<15)
[2024-11-07] MEDS: Iohexol 350 (CONTRAST) 500 ML MDV IV ONE (15:13)
[2024-11-07 23:21] LABS: C Reactive Protein < 1.00 mg/L (<8.01)
[2024-11-08] MEDS: Amoxicillin/Clavul 875/125 TAB (Augmentin 875 tab) PO SCH (00:29)
[2024-11-08] MEDS ORDERED: Sulfur Hexaflouride MICROSPHR 25 MG VIAL IV PRN (00:42)
[2024-11-08] MEDS: KCL 20 MEQ/100 ML IVPREMIX 20 MEQ/100 ML BAG IV SCH (02:17)
[2024-11-08] MEDS: Potassium Chlor 20 meq TAB.ER PO ONE (02:18)
[2024-11-08] MEDS: Furosemide 20 mg/2 ml IV VIAL IV ONE (02:56)
[2024-11-08] MEDS ORDERED: Furosemide 20 mg/2 ml IV VIAL IV ONE (06:00)
[2024-11-08 06:41] LABS: Hematocrit 29.6 % (35-45); Hemoglobin 10.4 g/dL (11.5-14.3); Mean Corpuscular Hemoglobin 36.2 pg (27-33); Mean Corpuscular Volume 103.4 fL (80-97); Mean Platelet Volume 11.1 fL (7.5-11.2); Platelet Count 113 10^3/uL (150-450); Red Blood Count 2.86 10^6/uL (3.63-4.92); Red Cell Distribution Width 14.7 % (12-17); White Blood Count 6.9 10^3/uL (3.8-11.8)
[2024-11-08 06:58] LABS: Calcium 8.1 mg/dL (8.6-10.3); Creatinine, Serum 1.01 mg/dL (0.51-0.95); HDL Cholesterol 42.7 mg/dL; Magnesium 1.1 mg/dL (1.9-2.7); Phosphorus 2.8 mg/dL (2.5-5.0); Potassium 3.5 mmol/L (3.5-5.0)
[2024-11-08 08:03] LABS: ABS Eosinophils 0.4 10^3/uL (0.0-0.5); ABS Lymphocytes 2.3 10^3/uL (1.0-4.8); ABS Monocytes 0.5 10^3/uL (0.0-0.9); ABS Neutrophils 3.8 10^3/uL (1.5-7.6); Eosinophil % 5.3 %; Lymphocyte % 32.9 %; Macrocytosis 1+; Nucleated Red Blood Cells % 0.1 %/100WBC (0.0-0.8)
[2024-11-08] MEDS: Magnesium Sulf 4 GM/100 ML IV 4,000 MG/100 ML BAG IVPB ONE (08:56)
[2024-11-08] MEDS ORDERED: Sulfur Hexaflouride MICROSPHR 25 MG VIAL ONE (10:56)
[2024-11-08 18:38] LABS: Calcium 9.2 mg/dL (8.6-10.3); Creatinine, Serum 0.95 mg/dL (0.51-0.95); Potassium 4.1 mmol/L (3.5-5.0); eGFR CKD-EPI 61.3 (>60)
[2024-11-08 20:20] LABS: Magnesium 2.1 mg/dL (1.9-2.7)
[2024-11-09 10:05] VITALS: BP 154/65
== END 2024-11-09 11:59 | disposition home or self-care (01) ==
LOC: ED 11:57 → EDHOLD 11:57 → MEDTELE 11-08 00:48
PROVIDERS: ADMIT Student in an Organized Health Care Education/Training Program; ATTEND Hospitalist